=== PATIENT | male | born 1980 | race Caucasian/White ===

== ENCOUNTER 2017-07-05 11:20 | Outpatient (CLI) | payer OTHER ==
[~2017-07-05] VITALS: Ht 182.9 cm; Wt 97.5 kg
== END 2017-07-05 11:45 | disposition home or self-care (01) ==
LOC: OFIC 805 11:20
DX: J32.8 Other chronic sinusitis (principal); H69.01 Patulous Eustachian tube, right ear; H69.02 Patulous Eustachian tube, left ear